=== PATIENT | male | born 1965 | race Caucasian/White ===

== ENCOUNTER 2022-10-28 08:32 | Outpatient (CLI) | payer OTHER | END 2022-10-28 14:20 | disposition home or self-care (01) | LOC: LAB 08:32 | PROVIDERS: ATTEND Surgery | DX: Z20.822 Contact with and (suspected) exposure to COVID-19 (principal) ==

== ENCOUNTER 2022-10-29 05:31 | Day surgery (SDC) | payer OTHER ==
[~2022-10-29] VITALS: Ht 162.6 cm; Wt 108.9 kg
== END 2022-10-29 17:40 | disposition home or self-care (01) ==
LOC: CIR.AMB 05:31
PROVIDERS: ATTEND Surgery
DX: K43.6 Other and unspecified ventral hernia with obstruction, without gangrene (principal); Z20.822 Contact with and (suspected) exposure to COVID-19; E66.09 Other obesity due to excess calories
CPT/HCPCS: 49592; C1781